=== PATIENT | female | born 1960 | race Caucasian/White ===

== ENCOUNTER → 2016-08-28 | Outpatient (CLI) | payer BC | END | disposition home or self-care (01) | LOC: MAMMO 09:34 | DX: Z12.31 Encounter for screening mammogram for malignant neoplasm of breast (principal); C76.1 Malignant neoplasm of thorax ==

== ENCOUNTER → 2016-12-25 | Outpatient (CLI) | payer BC | END | disposition home or self-care (01) | LOC: LAB 11:03 | DX: E83.52 Hypercalcemia (principal) ==

== ENCOUNTER → 2017-11-04 | Outpatient (CLI) | payer BC | END | disposition home or self-care (01) | LOC: MAMMO 08:00 | DX: Z12.31 Encounter for screening mammogram for malignant neoplasm of breast (principal); R92.8 Other abnormal and inconclusive findings on diagnostic imaging of breast ==